=== PATIENT | male | born 1980 | race Caucasian/White ===

== ENCOUNTER 2017-04-14 10:23 | Emergency (ER) | payer BC ==
[~2017-04-14] VITALS: Ht 175.3 cm; Wt 92.3 kg
[~2017-04-14 10:23] MED LIST: CLONAZEPAM2 MG PO; DEPAKOTE500 MG PO; DULERA IH; FLEXERIL5 MG PO; IMITREX25 MG PO; NORCO 5/3251 TABLET PO; PREDNISONE50 MG PO; VENTOLIN HFA18 GM IH
[2017-04-14] MEDS ORDERED: LIDODERM 5% P1 PATCH TD (12:44)
[2017-04-14] MEDS ORDERED: NORCO 5/3251 TABLET PO (12:44)
[2017-04-14] MEDS ORDERED: FLEXERIL10 MG PO (12:44)
[2017-04-14] MEDS ORDERED: NAPROSYN500 MG PO (12:44)
[2017-04-14 13:37] VITALS: BP 135/83
== END 2017-04-14 13:38 | disposition home or self-care (01) ==
LOC: EME 10:23
DX: S39.012A Strain of muscle, fascia and tendon of lower back, initial encounter (principal); X50.9XXA Other and unspecified overexertion or strenuous movements or postures, initial encounter; M54.16 Radiculopathy, lumbar region
CPT/HCPCS: 72100; 80053; 85027; 99281; 99283; J3010